=== PATIENT | female | born 1975 | race Two or more races ===

== ENCOUNTER 2024-01-30 12:51 | Inpatient (IN) | payer OTHER ==
[~2024-01-30] VITALS: Ht 162.6 cm; Wt 149.7 kg
[2024-01-30] MEDS ORDERED: ENDOMETRIN100 MG VAG (13:11)
[2024-01-30] MEDS ORDERED: 0.9 % SODIUM CHLORIDE 500 ML IV ONE (14:15)
[2024-01-30 15:11] LABS: HEMATOCRIT 42.1 % (36.0-45.00); HEMOGLOBIN 13.5 g/dL (12.0-15.00); MEAN CORPUSCULAR HEMOGLOBIN 23.2 pg (27.00-32.0); MEAN CORPUSCULAR HGB CONC 32.2 g/dl (32.0-36.0); PLATELET COUNT 360 K/uL (150-450); RED BLOOD COUNT 5.84 M/uL (4.00-6.00); RED CELL DISTRIBUTION WIDTH 18.1 % (11.5-14.5)
[2024-01-30 15:31] LABS: ALBUMIN 3.7 gm/dL (3.4-5.0); BILIRUBIN TOTAL 0.68 mg/dL (0.3-1.2); CALCIUM 8.6 mg/dL (8.5-10.1); CREATININE SERUM 0.57 mg/dL (0.55-1.02); GFR 112.27; GLOBULINA 3.7 G/DL (2.4-3.5); POTASSIUM 3.84 mEq/L (3.5-5.1); TOTAL PROTEIN 7.4 gm/dL (6.4-8.2)
[2024-01-30 15:37] LABS: INR 1.04; PROTHROMBIN TIME 11.3 SECONDS (9.0-11.5)
[2024-01-30 16:07] LABS: URINE APPEARANCE Turbid; URINE BILIRRUBIN Small (NEGATIVE); URINE BLOOD Large; URINE COLOR Orange; URINE GLUCOSE Negative (NEGATIVE); URINE KETONE Negative (NEGATIVE); URINE LEUKOCYTE Small; URINE NITRATE Negative; URINE PROTEIN 30 (NEGATIVE); URINE UROBILINOGEN 0.2 E.U./dl
[2024-01-30 16:11] LABS: URINE BACTERIA 94.4 uL (0.0-1933); URINE EPITHELIAL CELLS 7.1 uL (0.0-38.8); URINE WBC 15.1 uL (0.0-23.2)
[2024-01-30 16:17] LABS: URINE CAST 0.27 uL (0.0-1.40); URINE RBC > 10558.9 uL (0.0-20.8)
[2024-01-30] MEDS ORDERED: ESTROGENS, CONJUGATED 25 MG VIAL IV ONE (18:00)
[2024-01-30] MEDS ORDERED: 0.9 % SODIUM CHLORIDE 1,000 ML IV SCH (19:00)
[2024-01-31 02:50] VITALS: BP 100/64
[2024-01-31] MEDS ORDERED: CEFAZOLIN SODIUM 1,000 MG VIAL IV SCH (07:15)
[2024-01-31 07:47] LABS: HEMATOCRIT 39.6 % (36.0-45.00); HEMOGLOBIN 12.8 g/dL (12.0-15.00); MEAN CELL VOLUME 71.3 fL (80.00-100.00); MEAN CORPUSCULAR HEMOGLOBIN 23.1 pg (27.00-32.0); MEAN CORPUSCULAR HGB CONC 32.4 g/dl (32.0-36.0); PLATELET COUNT 339 K/uL (150-450); RED BLOOD COUNT 5.56 M/uL (4.00-6.00); RED CELL DISTRIBUTION WIDTH 18.6 % (11.5-14.5)
[2024-01-31 11:21] VITALS: O2SAT 100
[2024-01-31] MEDS ORDERED: MEPERIDINE HCL/PF 50 MG/ML VIAL IV SCH (12:00)
[2024-01-31] MEDS ORDERED: PROMETHAZINE HCL 25 MG/ML AMPUL IV SCH (12:00)
[2024-01-31 14:05] VITALS: BP 96/56
[2024-01-31 16:02] VITALS: BP 97/59
[2024-01-31 18:14] LABS: HEMATOCRIT 38.9 % (36.0-45.00); HEMOGLOBIN 12.6 g/dL (12.0-15.00); MEAN CELL VOLUME 71.3 fL (80.00-100.00); MEAN CORPUSCULAR HGB CONC 32.3 g/dl (32.0-36.0); PLATELET COUNT 324 K/uL (150-450); RED BLOOD COUNT 5.46 M/uL (4.00-6.00); RED CELL DISTRIBUTION WIDTH 18.5 % (11.5-14.5)
[2024-01-31 21:18] VITALS: BP 106/69
[2024-02-01 00:51] VITALS: BP 104/60
[2024-02-01] MEDS ORDERED: IBUprofen 800 MG TABLET PO SCH (05:00)
[2024-02-01] MEDS ORDERED: SIMETHICONE 125 MG CAPSULE PO SCH (05:00)
[2024-02-01] MEDS ORDERED: GABAPENTIN 300 MG CAPSULE PO SCH (05:00)
[2024-02-01] MEDS ORDERED: POLYETHYLENE GLYCOL 3350 17 GM BLIST.PACK PO SCH (05:00)
[2024-02-01 06:15] VITALS: BP 107/72
[2024-02-01 09:00] VITALS: BP 105/68
[2024-02-01 15:09] VITALS: BP 102/55
[2024-02-02 00:04] VITALS: BP 109/59
[2024-02-02] MEDS ORDERED: IBUPROFEN800 MG PO (06:47)
[2024-02-02] MEDS ORDERED: POLY119PG PO (06:47)
[2024-02-02] MEDS ORDERED: GABAPENTIN300 MG PO (06:47)
[2024-02-02] MEDS ORDERED: SIMETHICONE125 M1 PO (06:48)
[2024-02-02 08:35] VITALS: BP 103/52
== END 2024-02-02 09:09 | disposition home or self-care (01) | DRG 743 ==
LOC: ER 12:53 → OB/GYN 19:04
PROVIDERS: General Practice; Nurse Practitioner Family; ADMIT Obstetrics & Gynecology; ATTEND Obstetrics & Gynecology
PROC: 0UT90ZZ Resection of Uterus, Open Approach (ICD-10-PCS; principal; 2024-01-30)
PROC: 0UT50ZZ Resection of Right Fallopian Tube, Open Approach (ICD-10-PCS; 2024-01-30)
DX: D25.1 Intramural leiomyoma of uterus (principal); D25.0 Submucous leiomyoma of uterus; N80.03 Adenomyosis of the uterus; N72 Inflammatory disease of cervix uteri; Z20.822 Contact with and (suspected) exposure to COVID-19; Z86.018 Personal history of other benign neoplasm